=== PATIENT | female | born 1975 | race American Indian/Alaskan Native ===

== ENCOUNTER 2017-07-13 17:10 | Emergency (ER) | payer OTHER ==
[2017-07-13] MEDS ORDERED: MOTRIN PO ONE (19:22)
--- NOTE | 2017-07-13 19:23 | Emergency Department Report ---
Blank Doc - Documentation Documentation: Patient is a 42-year-old female who is presenting with right ankle pain this started to radiate up the right calf. Patient states that she has a history of some dependent edema however the edema has not been in bed she does have point discomfort. Patient states last week she did have some increased edema but she's been elevating the leg pain is not improved. D-dimer will be ordered to rule out potential for clotting disorder.
--- NOTE | 2017-07-13 20:18 | Emergency Department Report ---
ED Lower Extremity HPI - General Chief Complaint: Extremity Injury, Lower Stated Complaint: BILATERAL LEGS/FEET SWELLING Time Seen by Provider: 07/13/17 19:05 Source: patient, family Mode of arrival: Ambulatory Limitations: No Limitations - History of Present Illness Initial Comments: Patient airport right ankle pain. 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 She is having pain to her right ankle 8 out of 10 and aching. Patient also has a history of swelling to both legs and reporting pain is radiating up in her right leg and she has swelling to both her legs. Patient has a history of atrial fibrillation in the past and also that she had a history of heart attack. She said she has a history of uterine ablation for dysfunctional uterine bleeding. Patient has a history of GERD. She also reports that she was on Lasix in the past as noted on the chart that on 08/11/2015 she was placed on Lasix for edema in her legs. Patient says she's been out of her metoprolol which she takes twice a day after she had atrial fibrillation and heart attack. Her blood pressure is stable at present. She denies any chest pain, shortness of breath. Denies any control. Denies any recent long distance travel by plane or car to exceed 3 or more hours. Denies any history of cancer or recent convalescent. She reports that pain is radiating up in her right calf and it feels sore but aching into her right ankle. [id number] medication does not help pain. Pain is worse with weightbearing and better with resting. Denies any fever or chills. Denies any injuries to her extremities. Denies any redness to legs. Patient has a history of chronic edema to both her lower extremity to include her ankles and feet. MD Complaint: other Onset/Timin -: week(s) Injury: Ankle: Right (Pain and sweswelling rt ankle) Type of Injury: unknown Place: home Severity: severe Severity scale (0 -10): 7 Improves With: immobilization, rest Worsens With: weight bearing, movement, palpation Context: other (unknown) Associated Symptoms: swelling, ambulatory. denies: snap/pop sensation, numbness , tingling, unable to bear weight, able to partially bear weight - Related Data Previous Rx's Medication Instructions Recorded Last Taken Type ALBUTEROL Inhaler [Proair] 2 puff IH QID PRN #1 inhalation 08/11/15 Unknown Rx Furosemide [Lasix] 20 mg PO QDAY #10 tablet 08/11/15 Unknown Rx Ibuprofen [Motrin] 800 mg PO Q8HR PRN #12 tablet 07/13/17 Unknown Rx Metoprolol [Lopressor TAB] 50 mg PO Q12H 30 Days #60 tablet 07/13/17 Unknown Rx Allergies Allergy/AdvReac Type Severity Reaction Status Date / Time No Known Allergies Allergy Verified 05/24/14 22:03 ED Review of Systems ROS: Stated complaint: BILATERAL LEGS/FEET SWELLING Other details as noted in HPI Comment: All other systems reviewed and negative Constitutional: no symptoms reported Respiratory: no symptoms reported Cardiovascular: denies: chest pain, palpitations, dyspnea on exertion, edema, syncope, paroxysmal nocturnal dyspnea Gastrointestinal: denies: abdominal pain, nausea, vomiting Genitourinary: denies: urgency, dysuria, frequency, hematuria, discharge, abnormal menses, dyspareunia Musculoskeletal: joint swelling, arthralgia. denies: back pain, myalgia Neurological: denies: headache, weakness, numbness, paresthesias, confusion, abnormal gait, vertigo ED Past Medical Hx - Past Medical History Previous Medical History?: Yes Hx Hypertension: Yes Hx GERD: Yes Hx Renal Disease: No Hx Asthma: No Additional medical history: A. Fib. - Surgical History Past Surgical History?: Yes Additional Surgical History: Uterine ablation for DUB March 2014 - Family History Family history: hypertension - Social History Smoking Status: Never Smoker Substance Use Type: Alcohol - Medications Home Medications: Home Medications Medication Instructions Recorded Confirmed Last Taken Type ALBUTEROL Inhaler [Proair] 2 puff IH QID PRN #1 inhalation 08/11/15 Unknown Rx Furosemide [Lasix] 20 mg PO QDAY #10 tablet 08/11/15 Unknown Rx Ibuprofen [Motrin] 800 mg PO Q8HR PRN #12 tablet 07/13/17 Unknown Rx Metoprolol [Lopressor TAB] 50 mg PO Q12H 30 Days #60 tablet 07/13/17 Unknown Rx ED Physical Exam - General Limitations: No Limitations General appearance: alert, in no apparent distress - Head Head exam: Present: atraumatic, normocephalic, normal inspection - Eye Eye exam: Present: normal appearance, PERRL, EOMI. Absent: nystagmus, periorbital swelling, periorbital tenderness Pupils: Present: normal accommodation - ENT ENT exam: Present: normal exam, normal orophraynx, mucous membranes moist. Absent: TM's normal bilaterally, normal external ear exam - Neck Neck exam: Present: normal inspection, full ROM. Absent: tenderness, meningismus, lymphadenopathy, thyromegaly - Respiratory Respiratory exam: Present: normal lung sounds bilaterally. Absent: respiratory distress, wheezes, chest wall tenderness, accessory muscle use - Cardiovascular Cardiovascular Exam: Present: regular rate, normal rhythm, normal heart sounds. Absent: systolic murmur, diastolic murmur - GI/Abdominal GI/Abdominal exam: Present: soft, normal bowel sounds. Absent: distended, rebound, rigid, mass, bruit, pulsatile mass, hernia - Extremities Exam Extremities exam: Present: full ROM, tenderness (right inner ankle), pedal edema (right foot minimal), joint swelling (right ankle), other (ambulates with mild limp. The right side). Absent: normal inspection, normal capillary refill , calf tenderness - Expanded Lower Extremity Exam Right Hip exam: Present: normal inspection, full ROM, pelvic stability. Absent: tenderness, swelling, abrasion, laceration, ecchymosis, deformity, crepidus, dislocation, erythema, external rotation, internal rotation, shortening Upper Leg exam: Present: normal inspection, full ROM. Absent: tenderness, swelling, abrasion, laceration, ecchymosis, deformity, crepidus, dislocation, erythema Knee exam: Present: normal inspection, full ROM, full knee extension. Absent: tenderness, swelling, abrasion, laceration, ecchymosis, deformity, crepidus, dislocation, erythema, effusion, pain w/ pronation/supination, posterior draw sign, pain/laxity with valgus, pain/laxity with varus Lower Leg exam: Present: normal inspection, full ROM, Hina's sign. Absent: tenderness, swelling, abrasion, laceration, ecchymosis, deformity, crepidus, dislocation, erythema, palpable cord Ankle exam: Present: full ROM, tenderness (right ankle), swelling (mild swelling to right ankle). Absent: normal inspection, abrasion, laceration, ecchymosis, deformity, crepidus, dislocation, erythema Foot/Toe exam: Present: normal inspection, full ROM, swelling (trace swelling to right foot). Absent: tenderness, abrasion, laceration, ecchymosis, deformity , crepidus, dislocation, erythema, amputation, puncture wound, foreign body, calcaneal tenderness, tenderness at base of 5th metatarsal, nail avulsion, subungual hematoma Neuro vascular tendon exam: Present: no vascular compromise. Absent: pulse deficit, abnormal cap refill, motor deficit, sensory deficit, tendon deficit, extremity cold to touch, pallor, abnormal 2-point discrimination, decreased fine /light touch, foot drop, peroneal nerve deficit, significant pain with passive ROM of distal joint Gait: Positive: observed and limited by pain - Back Exam Back exam: Present: normal inspection, full ROM, other (ambulates without any difficulties). Absent: tenderness, CVA tenderness (R), CVA tenderness (L), muscle spasm, paraspinal tenderness, vertebral tenderness, rash noted - Neurological Exam Neurological exam: Present: alert, oriented X3, abnormal gait (patient with minimal limp into right lower extremity), reflexes normal, other (no focal deficit). Absent: motor sensory deficit - Psychiatric Psychiatric exam: Present: normal affect, normal mood - Skin Skin exam: Present: warm, dry, intact, normal color. Absent: rash ED Course Vital Signs 07/13/17 07/13/17 07/13/17 17:21 22:30 22:50 Temperature 98.3 F 98.3 F Pulse Rate 88 85 85 Respiratory 18 18 Rate Blood Pressure 134/85 154/87 Blood Pressure 154/87 [Right] O2 Sat by Pulse 95 99 Oximetry - Reevaluation(s) Reevaluation #1: 07/13/17 21:13 This given Motrin 800 mg emergency room for right ankle pain. She voiced some relief of pain. Awaiting an x-ray of ankle 1 Reevaluation #2: 07/13/17 22:02 Patient to receive Lovenox 120 mg subcutaneously based on weight. She will be discharged home to follow up outpatient vascular lab for right lower extremity vascular study. Reevaluation #3: 07/13/17 22:24 Patient is stable, metoprolol and Lovenox to be given. Crutches and Alexei wrap to stabilize right ankle pain and swelling and please refer to procedure note for detail. Ultrasound, outpatient Doppler right lower extremity for tomorrow and patient is aware - Orthopedic Splinting/Casting Injury #1 Side: right Upper Extremity Immobilizer: Alexei wrap Lower Extremity Injury Location: ankle, foot Other Orthopedic Equipment: crutches Additional Comments: Neurovascular exam normal ED Lower Extremity MDM - Lab Data Lab Results 07/13/17 Range/Units 19:38 D-Dimer 249.32 H (0-234) ng/mlDDU - Radiology Data Radiology results: report reviewed X-ray of right ankle reveals no soft tissue swelling seen and no fracture or malalignment. - Medical Decision Making ED course: Patient reports that she has chronic lower extremity edema to include her legs, ankle and feet. She said that she was seen at [facility] for swelling to her extremities and last week she started having swelling to her right ankle with pain. 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 She denies twisting, blunt trauma or falling. Patient is not on control and she does not have any tenderness to palpate to the right calf but she said she has had a history of pulmonary embolism after having surgery in 2003 and she was on blood thinner which she has not taken now. Patient reports that she has chronic swelling to her legs, ankles and feet though only difference is that she is having pain to her right ankle with swelling. Denies any chest pain or shortness of breath. Pain is localized to right ankle. Physical findings for no swelling to her legs and trace swelling to right foot. She is dependent at the palpate to the right ankle. Patient was given Motrin 800 mg PO for pain and Lovenox 120 mg SQ prophylaxis for DVT in emergency room . Alexei wrap and crutches. See procedure notes for details. Her d-dimer is elevated please refer to labs for detail. X- ray had no acute findings and please refer to radiology section for details. I discussed the patient her lab results and x-ray results and told her that she' ll have to have Doppler ultrasound study of her lower extremity to rule out any clots. Patient has a history of heart attack and atrial fibrillation which she said that she is on metoprolol and she's been out of her metoprolol for about a week and she does not have primary care physician and has not seen a suction worker. She is that she has not seen a suction worker in years and she does not have any insurance that she doesn't primary care. I discussed with her that I will refer her to [facility] family medicine and she can schedule appointment tomorrow for physical exam and this is based on the sliding scale fee. I also discussed with her that is very imperative that she return to the vascular lab tomorrow morning to have ultrasound done to rule out a blood clot in her leg. Patient does not have any signs of blood clots to legs except she has left ankle swelling and pain at her left ankle. Her calves are normal and she is without any tenderness to her calves. She does not have any erythema or swelling to both her legs. discharged home in stable condition with prescription for Metoprolol and ibuprofen. Critical care attestation.: If time is entered above; I have spent that time in minutes in the direct care of this critically ill patient, excluding procedure time. ED Disposition Clinical Impression: Pain in right ankle and joints of right foot, Swelling of right ankle joint, D- dimer, elevated Disposition: DC-01 TO HOME OR SELFCARE Is pt being admited?: No Does the pt Need Aspirin: No Condition: Stable Instructions: Musculoskeletal Pain (ED), Arthralgia (ED) Additional Instructions: A component a lab work are 2S d-dimer was elevated today. He will need to return to the skin lab as directed on appointment sheet to have ultrasound of your lower extremity to rule out any blood clots. Your given little dots which is a blood thinner to protect you and keeping her blood thin and prevent clotting. It is very imperative that you return tomorrow to get this Doppler ultrasound study done. If the vascular lab at [facility] does not call you by 9 AM he will need to call them and let them know that you're seen in the emergency room and ultrasound of your right lower extremity was ordered. They will have appointment. If he develops any chest pain or shortness of breath please return to the emergency room KYLE. No weightbearing to right lower extremity. If you're ultrasound comes back positive for blood clot, staff in vascular lab well direct you back to the emergency room. Prescriptions: Ibuprofen [Motrin] 800 mg PO Q8HR PRN #12 tablet PRN Reason: Pain , Severe (7-10) Metoprolol [Lopressor TAB] 50 mg PO Q12H 30 Days #60 tablet Referrals: [facility] [Outside] - 07/15/17 (These call [facility] for management of chronic medical problem and they will refer you accordingly. You need to have a Pap smear and also mammogram at the age of 42 which she has told me you haven't had in 3 years) [facility], vascular lab [Other] - 3-5 Days (Please proceed to the vascular lab at [facility] on 07/14/2017 for appointment for Doppler ultrasound of right lower extremity to rule out any blood clot. If you do not get a call from them by 9 AM please call them and let them know that you're scheduled to be seen to have ultrasound to your right lower leg per emergency room.)
[2017-07-13] MEDS ORDERED: LOVENOX SUB-Q ONE (22:01)
[2017-07-13] MEDS ORDERED: LOPRESSOR PO ONE (22:09)
--- NOTE | 2017-07-13 22:26 | XRay Report ---
FINAL REPORT PROCEDURE: XR ANKLE 3+V RT TECHNIQUE: Right ankle radiographs, AP, lateral, and oblique views. CPT 91700 HISTORY: rt ankle pain and swelling COMPARISON: No prior studies are available for comparison. FINDINGS: Fracture (s) and/or Dislocation(s): None . Alignment: Normal . Joint space(s): Normal . Soft tissues: Normal . Bone mineralization: Normal . Foreign bodies: None . Calcaneal spurring: There are calcaneal spurs.. IMPRESSION: There are no fractures or malalignments. Soft tissues are unremarkable..
[2017-07-14 07:23] VITALS: BP 154/87
== END 2017-07-13 22:50 | disposition home or self-care (01) ==
LOC: ED 17:10
DX: M25.571 Pain in right ankle and joints of right foot (principal); I10 Essential (primary) hypertension; K21.9 Gastro-esophageal reflux disease without esophagitis; I48.91 Unspecified atrial fibrillation
CPT/HCPCS: 36415; 73610; 85379; 96372; 99283; J1650

== ENCOUNTER 2017-07-14 09:35 | Outpatient (CLI) | payer OTHER | END 2017-07-14 09:36 | disposition home or self-care (01) | LOC: VAS 09:35 | PROVIDERS: ATTEND Nurse Practitioner Family | DX: M25.571 Pain in right ankle and joints of right foot (principal); M25.471 Effusion, right ankle ==

== ENCOUNTER 2017-08-02 10:51 | Emergency (ER) | payer OTHER ==
[2017-08-02 10:58] VITALS: BP 154/97
--- NOTE | 2017-08-02 12:33 | Emergency Department Report ---
Minor Respiratory - HPI Chief Complaint: Sore Throat Stated Complaint: FEVER, SORE THROAT Time Seen by Provider: 08/02/17 11:44 Duration: 4 Days (sore throats and pain to right ear.) Pain Location: Throat, Ear Severity: severe (10/10. Sore worse with swallowing. [id number] pain medication without any relief) Minor Respiratory: Yes Sore Throat, Yes Able to Tolerate Fluids, Yes Ear Pain ( right ear), Yes Fever, No Rhinorrhea, No Cough, No Sick Contacts, No Hemoptysis , No Chest Pain, No Shortness of Breath Other History: Patient reports that she is sore throat fever and sore neck 4 days. She's been taking [id number] medication without any relief. Denies any nausea or vomiting. She also reports that she has headache on and off for the past 4 days. Denies any abdominal pain. Denies any back pain. Denies any cough, congestion, shortness of breath or chest pain. Pain feels achy , no alleviating factor, worse with swallowing. Denies any drooling. ED Review of Systems ROS: Stated complaint: FEVER, SORE THROAT Other details as noted in HPI Comment: All other systems reviewed and negative Constitutional: no symptoms reported Eyes: denies: eye pain, eye discharge ENT: ear pain, throat pain. denies: dental pain, hearing loss, congestion Respiratory: no symptoms reported Cardiovascular: denies: chest pain, palpitations, dyspnea on exertion, edema, syncope, paroxysmal nocturnal dyspnea Gastrointestinal: denies: abdominal pain, nausea, vomiting, diarrhea, constipation, hematemesis, melena, hematochezia Genitourinary: denies: urgency, dysuria, frequency, hematuria, discharge, abnormal menses Musculoskeletal: denies: back pain, joint swelling, arthralgia, myalgia Skin: denies: rash Neurological: headache. denies: weakness, numbness, paresthesias, confusion, abnormal gait, vertigo ED Past Medical Hx - Past Medical History Previous Medical History?: Yes Hx Hypertension: Yes Hx GERD: Yes Hx Renal Disease: No Hx Asthma: No Additional medical history: A. Fib. - Surgical History Past Surgical History?: Yes Additional Surgical History: Uterine ablation for DUB March 2014 - Family History Family history: hypertension - Social History Smoking Status: Never Smoker Substance Use Type: Alcohol, Other - Medications Home Medications: Home Medications Medication Instructions Recorded Confirmed Last Taken Type ALBUTEROL Inhaler [Proair] 2 puff IH QID PRN #1 inhalation 08/11/15 Unknown Rx Furosemide [Lasix] 20 mg PO QDAY #10 tablet 08/11/15 Unknown Rx Metoprolol [Lopressor TAB] 50 mg PO Q12H 30 Days #60 tablet 07/13/17 Unknown Rx Ibuprofen [Motrin 800 MG tab] 800 mg PO Q8HR PRN #12 tablet 08/02/17 Unknown Rx Penicillin V Potassium 500 mg PO Q8H 10 Days #30 tablet 08/02/17 Unknown Rx Minor Respiratory Exam - Exam General: Vital signs noted. No distress. Alert and acting appropriately. This is a 42-year-old female well-nourished well-developed in no acute distress. HEENT: Yes Pharyngeal Erythema, Yes Pharyngeal Exudates, Yes Moist Mucous Membranes (uvula is midline and oral airways patent.), No Rhinorrhea, No Conjuctival Injection, No Frontal Tenderness, No Maxillary Tenderness Ear: Neither TM Bulge, Neither TM Erythema, Neither EAC Pain, Neither EAC Discharge Neck: Yes Adenopathy (bilateral anterior chain), Yes Supple (full range of motion) Lungs: Yes Good Air Exchange, No Wheezes, No Ronchi, No Stridor, No Cough, No Labored Respirations, No Retractions, No Use of Accessory Muscles, No Other Abnormal Lung Sounds Heart: Yes Regular (S1, S2), No Murmur Abdomen: Yes Normal Bowel Sounds (in all quadrants.), No Tenderness (nontender the palpation in all quadrants and no CVA tenderness), No Peritoneal Signs Skin: No Rash, No Edema Neurologic: Alert and oriented, no deficits. Neurological: Patient is alert and oriented 3, GCS of 15. Speech is clear. Normal gait, no motor or sensory deficit. Normal reflexes. Musculoskeletal: Unremarkable. Normal exam ED Course Vital Signs 08/02/17 10:55 Temperature 98.8 F Pulse Rate 93 H Respiratory 20 Rate Blood Pressure 154/97 O2 Sat by Pulse 96 Oximetry - Reevaluation(s) Reevaluation #1: 08/02/17 12:56 Patient received Motrin 800 mg by mouth and Deltasone 60 mg by mouth. ED Medical Decision Making - Medical Decision Making ED course: Patient presented with sore throat, fever and headache with neck pain on and off for the past 4 days. Physical findings for enlarged anterior cervical chain lymph nodes, exudative pharyngitis, patient has no respiratory symptoms and she is having headache with fever. Based on [facility] criteria, patient with exudative pharyngitis and no need for strep testing. I discussed patient diagnosis and treatment plan and she is in agreement. She received both of those this milligrams by mouth, Motrin 800 mg in the emergency room for relief of pain. Patient discharged home prescription for Motrin and penicillin V and to follow up with her primary care in 2-3 days. Critical care attestation.: If time is entered above; I have spent that time in minutes in the direct care of this critically ill patient, excluding procedure time. ED Disposition Clinical Impression: Exudative pharyngitis, Anterior cervical adenopathy Acute headache Qualifiers: Headache type: unspecified Intractability: not intractable Qualified Code(s): R51 - Headache Disposition: DC-01 TO HOME OR SELFCARE Is pt being admited?: No Does the pt Need Aspirin: No Condition: Stable Instructions: Strep Throat (ED) Additional Instructions: Please increase her fluid intake Return to work in 48 hours Practice good hand hygiene Take antibiotic and Motrin as prescribed. Motrin is for fever and pain Prescriptions: Ibuprofen [Motrin 800 MG tab] 800 mg PO Q8HR PRN #12 tablet PRN Reason: fever and/or pain Penicillin V Potassium 500 mg PO Q8H 10 Days #30 tablet Referrals: [facility] [Outside] - 2-3 Days your, primary care physician [Other] - 3-5 Days Forms: Work/School Release Form(ED)
[2017-08-02] MEDS ORDERED: DELTASONE PO ONE (12:34)
[2017-08-02] MEDS ORDERED: MOTRIN PO ONE (12:34)
== END 2017-08-02 13:10 | disposition home or self-care (01) ==
LOC: ED 10:51
DX: J02.9 Acute pharyngitis, unspecified (principal); R59.9 Enlarged lymph nodes, unspecified; R51 Headache; I10 Essential (primary) hypertension; K21.9 Gastro-esophageal reflux disease without esophagitis
CPT/HCPCS: 99282; J7512

== ENCOUNTER 2019-03-18 16:51 | Emergency (ER) | payer MEDICAID ==
--- NOTE | 2019-03-18 17:12 | Event Note ---
ED Screening Note Date of service: 03/18/19 Time: 17:07 ED Screening Note: Reports dizziness, jittery, SOB, Heart palpatation a few hours ago but feels better now. Taking metoprolol, Lasix, Nifedipine,Chlorthalddane. 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 Takes Potassium. Denies swelling to extremities Placed on Holter monitor for 2 weeks 2 weeks ago and nothing was found. Had ECHO 4 months ago. No h/o stress test VSS Tachycardia This initial assessment/diagnostic orders/clinical plan/treatment(s) is/are subject to change based on patients health status, clinical progression and re- assessment by fellow clinical providers in the ED. Further treatment and workup at subsequent clinical providers discretion. Patient/guardian urged not to elope from the ED as their condition may be serious if not clinically assessed and managed. Initial orders include: CP protocol
[2019-03-18 18:12] LABS: Basophils % (Auto) 0.1 % (0.0-1.8); Eosinophils # (Auto) 0.1 K/mm3 (0.0-0.4); Eosinophils % (Auto) 0.9 % (0.0-4.3); Hemoglobin 13.1 gm/dl (10.1-14.3); Lymphocytes # (Auto) 2.1 K/mm3 (1.2-5.4); Lymphocytes % (Auto) 23.8 % (13.4-35.0); Mean Corpuscular HGB Conc 34 % (30-34); Mean Corpuscular Volume 92 fl (79-97); Monocytes % (Auto) 11.2 % (0.0-7.3); Platelet Count 247 K/mm3 (140-440); Red Blood Count 4.25 M/mm3 (3.65-5.03); Red Cell Distribution Width 13.3 % (13.2-15.2)
[2019-03-18 18:22] LABS: INR 1.01 (0.87-1.13)
[2019-03-18 18:27] LABS: Alanine Aminotransferase 18 units/L (7-56); BUN/Creatinine Ratio 18; Blood Urea Nitrogen 18 mg/dL (7-17); Calcium 9.5 mg/dL (8.4-10.2); Hemolysis Index 23
--- NOTE | 2019-03-18 18:43 | Emergency Department Report ---
ED General Adult HPI - General Chief complaint: Dizziness Stated complaint: DIZZINESS,SHORTNESS OF BREATH,CHEST PALP Time Seen by Provider: 03/18/19 18:25 Source: patient Mode of arrival: Ambulatory Limitations: No Limitations, Altered Mental Status - History of Present Illness Initial comments: Patient is a 43-year-old female that presents emergency room with complaints of shortness of breath and dizziness that going on for 2 weeks. Patient states his symptoms are intermittent. Patient states the symptoms are not worsening but of the same. Patient states her symptoms completely come and go. Patient states her shortness of breath is worse with exertion and better with rest. Patient states her dizziness is worse with exertion and better with rest. Patient states her dizziness is more lightheadedness. Patient denies a sensation of movement. Patient states she has palpitations at times. Patient denies chest pain. Patient denies fever. Patient denies chills. Patient denies near syncope. Patient denies syncope. Patient states she has not seen her biology adjunct instructor or her primary care further symptoms. She states she's not having any symptoms at this time but just wanted to be checked out since the symptoms have been going on for 2 weeks. -: Sudden Severity scale (0 -10): 0 Consistency: intermittent, now resolved Improves with: rest Worsens with: other Associated Symptoms: shortness of breath. denies: confusion, chest pain, cough, diaphoresis, fever/chills, headaches, loss of appetite, malaise, nausea/vomiting, rash, seizure, syncope, weakness Treatments Prior to Arrival: none - Related Data Previous Rx's Medication Instructions Recorded Last Taken Type ALBUTEROL Inhaler (OR & NICU) 2 puff IH QID PRN #1 inhalation 08/11/15 Unknown Rx [Proair] Furosemide [Lasix] 20 mg PO QDAY #10 tablet 08/11/15 Unknown Rx Metoprolol [Lopressor TAB] 50 mg PO Q12H 30 Days #60 tablet 07/13/17 Unknown Rx Ibuprofen [Motrin 800 MG tab] 800 mg PO Q8HR PRN #12 tablet 08/02/17 Unknown Rx Penicillin V Potassium 500 mg PO Q8H 10 Days #30 tablet 08/02/17 Unknown Rx Allergies Allergy/AdvReac Type Severity Reaction Status Date / Time No Known Allergies Allergy Verified 05/24/14 22:03 ED Review of Systems ROS: Stated complaint: DIZZINESS,SHORTNESS OF BREATH,CHEST PALP Other details as noted in HPI Comment: All other systems reviewed and negative Constitutional: denies: chills, fever Eyes: denies: eye pain, eye discharge, vision change ENT: denies: ear pain, throat pain Respiratory: shortness of breath. denies: cough, wheezing Cardiovascular: palpitations. denies: chest pain Endocrine: no symptoms reported Gastrointestinal: denies: abdominal pain, nausea, diarrhea Genitourinary: denies: urgency, dysuria, discharge Musculoskeletal: denies: back pain, joint swelling, arthralgia Skin: denies: rash, lesions Neurological: denies: headache, weakness, paresthesias Psychiatric: denies: anxiety, depression Hematological/Lymphatic: denies: easy bleeding, easy bruising ED Past Medical Hx - Past Medical History Previous Medical History?: Yes Hx Hypertension: Yes Hx GERD: Yes Hx Renal Disease: No Hx Asthma: No Additional medical history: A. Fib. - Surgical History Past Surgical History?: Yes Additional Surgical History: Uterine ablation for DUB March 2014 - Social History Smoking Status: Never Smoker Substance Use Type: Prescribed - Medications Home Medications: Home Medications Medication Instructions Recorded Confirmed Last Taken Type ALBUTEROL Inhaler (OR & NICU) 2 puff IH QID PRN #1 inhalation 08/11/15 Unknown Rx [Proair] Furosemide [Lasix] 20 mg PO QDAY #10 tablet 08/11/15 Unknown Rx Metoprolol [Lopressor TAB] 50 mg PO Q12H 30 Days #60 tablet 07/13/17 Unknown Rx Ibuprofen [Motrin 800 MG tab] 800 mg PO Q8HR PRN #12 tablet 08/02/17 Unknown Rx Penicillin V Potassium 500 mg PO Q8H 10 Days #30 tablet 08/02/17 Unknown Rx ED Physical Exam - General Limitations: No Limitations General appearance: alert, in no apparent distress - Head Head exam: Present: atraumatic, normocephalic - Eye Eye exam: Present: normal appearance, PERRL Pupils: Present: normal accommodation - ENT ENT exam: Present: mucous membranes moist - Neck Neck exam: Present: normal inspection, full ROM. Absent: tenderness, meningismus, lymphadenopathy, thyromegaly - Respiratory Respiratory exam: Present: normal lung sounds bilaterally. Absent: respiratory distress, wheezes, rales - Cardiovascular Cardiovascular Exam: Present: regular rate, normal rhythm. Absent: systolic murmur, diastolic murmur, rubs, gallop - GI/Abdominal GI/Abdominal exam: Present: soft, normal bowel sounds. Absent: distended, tenderness, guarding - Rectal Rectal exam: Present: deferred - Extremities Exam Extremities exam: Present: normal inspection, full ROM, normal capillary refill. Absent: tenderness, pedal edema, calf tenderness - Back Exam Back exam: Present: normal inspection, full ROM - Neurological Exam Neurological exam: Present: alert, oriented X3 - Psychiatric Psychiatric exam: Present: normal affect, normal mood - Skin Skin exam: Present: warm, dry, intact, normal color. Absent: rash ED Course Vital Signs 03/18/19 03/18/19 03/18/19 16:58 17:42 17:54 Temperature 98 F Pulse Rate 110 H 85 Respiratory 22 16 14 Rate Blood Pressure 151/86 Blood Pressure 124/78 [Left] O2 Sat by Pulse 97 100 100 Oximetry 03/18/19 19:21 Temperature Pulse Rate 82 Respiratory 20 Rate Blood Pressure Blood Pressure 128/94 [Left] O2 Sat by Pulse 97 Oximetry - Reevaluation(s) Reevaluation #1: Patient states she is not having any symptoms at this time. Patient states she is able to ambulate to the bathroom and back without difficulties. Patient tolerated water intake. I discussed all results with patient. I discussed plan of care with patient. Patient is stable for discharge. Patient will be discharged home. Patient given discharge instructions. Patient voiced understanding of discharge instructions. 03/18/19 19:35 03/18/19 19:37 - Consultations Consultation #1: I discussed case with the physician on-call for [facility]. Dr. Corey states she's going to set the patient up with an appointment on Wednesday. 03/18/19 20:01 ED Medical Decision Making - Lab Data Result diagrams: 03/18/19 17:42 03/18/19 17:42 - EKG Data -: EKG Interpreted by Me EKG shows normal: sinus rhythm, axis, intervals, QRS complexes, ST-T waves Rate: tachycardia - Radiology Data Radiology results: report reviewed, image reviewed interpreted by me: No acute findings on chest x-ray. - Medical Decision Making Patient is a 43-year-old female that presents emergency room for shortness of breath and dizziness. Patient's symptoms going on for 2 weeks. Patient's symptoms are intermittent. Patient denies having symptoms while in the ER. Patient from a emergency medical standpoint is stable for discharge. Patient discharged home. Patient instructed to follow-up with her biology adjunct instructor within 2-3 days. Patient's labs unremarkable. Patient's EKG shows a sinus tach. On absence management consultant patient shows a sinus rhythm of a rate of 80-84. Patient's blood pressure better. Vital signs reviewed. Chest x-ray reviewed and negative. - Differential Diagnosis shortness of breath. Dizziness. Dehydration. Critical care attestation.: If time is entered above; I have spent that time in minutes in the direct care of this critically ill patient, excluding procedure time. ED Disposition Clinical Impression: SOB (shortness of breath), Dizziness, Dehydration Hypertension Qualifiers: Hypertension type: essential hypertension Qualified Code(s): I10 - Essential (primary) hypertension Disposition: TO HOME OR SELFCARE Is pt being admited?: No Does the pt Need Aspirin: No Condition: Stable Instructions: Heart Healthy Diet (ED), How to Take a Blood Pressure (ED), DASH Eating Plan (ED), Low Sodium Diet (ED), Hypertension (ED), Lightheadedness (ED), Dizziness (ED) Additional Instructions: Patient to follow-up with primary care in 2-3 days. Patient to follow-up with biology adjunct instructor within 2 days. Patient has an appointment set up for Wednesday with Dr. Norman. Patient to return to ER if condition worsens. Patient increase water. Patient to rest. Patient to avoid strenuous exercise until she is seen by her primary care and biology adjunct instructor. Patient to meds. Patient to eat heart healthy and low-salt diet. Referrals: TYRA CARLTON MD [Primary Care Provider] - 2-3 Days POLO NORMAN MD [Staff Physician] - 2-3 Days Time of Disposition: 19:59
[2019-03-18 19:22] VITALS: BP 128/94
--- NOTE | 2019-03-18 19:28 | XRay Report ---
CHEST 2 VIEWS INDICATION: Lightheadedness/Dizziness. COMPARISON: Chest x-ray from 08/10/2015 FINDINGS: Support devices: None. Heart: Within normal limits. Lungs/pleura: No acute air space or interstitial disease. No pneumothorax. Additional findings: None. IMPRESSION: 1. No acute findings. Signer Name: Mariano Sutton MD Signed: 03/18/2019 7:24 PM Workstation Name: [id number]
== END 2019-03-18 20:29 | disposition home or self-care (01) ==
LOC: ED 16:51
DX: R06.02 Shortness of breath (principal); R42 Dizziness and giddiness; E86.0 Dehydration; I10 Essential (primary) hypertension; K21.9 Gastro-esophageal reflux disease without esophagitis; I48.91 Unspecified atrial fibrillation; Z79.899 Other long term (current) drug therapy
CPT/HCPCS: 36415; 71046; 80053; 84484; 84703; 85025; 85610; 93005; 93010

== ENCOUNTER 2019-06-20 09:17 | Emergency (ER) | payer MEDICAID ==
[2019-06-20 09:25] VITALS: BP 150/86
[2019-06-20] MEDS ORDERED: HYDROcodone/ACETAMINOPHEN 5-325 MG TAB PO ONE (12:28)
[2019-06-20] MEDS ORDERED: ONDANSETRON 4 MG ODT TAB PO ONE (12:28)
--- NOTE | 2019-06-20 12:32 | Emergency Department Report ---
ED General Adult HPI - General Chief complaint: Extremity Injury, Lower Stated complaint: RT KNEE INJURY Time Seen by Provider: 06/20/19 11:11 Source: patient Mode of arrival: Ambulatory Limitations: No Limitations - History of Present Illness Initial comments: The patient presents to the emergency department with a chief complaint of right knee pain. Patient states she fell at a gas station striking her right knee against the ground. Sensation states since that time she's had right knee pain with some swelling. Patient states the Tylenol and Motrin at home are not working for relief of pain. She states she has a history of multiple knee injuries to the right knee. Patient denies hitting her head or any loss consciousness. -: Sudden Location: lower extremity Radiation: non-radiation Severity scale (0 -10): 6 Quality: sharp Consistency: constant Improves with: rest Worsens with: movement Associated Symptoms: denies other symptoms Treatments Prior to Arrival: none - Related Data Previous Rx's Medication Instructions Recorded Last Taken Type Albuterol INH(or & Nicu Only) 2 puff IH QID PRN #1 inhalation 08/11/15 Unknown Rx [Proair] Furosemide [Lasix] 20 mg PO QDAY #10 tablet 08/11/15 Unknown Rx Metoprolol [Lopressor TAB] 50 mg PO Q12H 30 Days #60 tablet 07/13/17 Unknown Rx Ibuprofen [Motrin 800 MG tab] 800 mg PO Q8HR PRN #12 tablet 08/02/17 Unknown Rx Penicillin V Potassium 500 mg PO Q8H 10 Days #30 tablet 08/02/17 Unknown Rx Acetaminophen/Codeine [Tylenol 1 tab PO Q6H PRN #15 tab 06/20/19 Unknown Rx /Codeine # 3 tab] Ondansetron [Zofran Odt] 4 mg PO Q4HR PRN #20 tab.rapdis 06/20/19 Unknown Rx traMADoL [Ultram] 50 mg PO Q6HR PRN #20 tablet 06/20/19 Unknown Rx Allergies Allergy/AdvReac Type Severity Reaction Status Date / Time azithromycin [From Zithromax] Allergy Hives Verified 06/20/19 09:32 ED Review of Systems ROS: Stated complaint: RT KNEE INJURY Other details as noted in HPI Comment: All other systems reviewed and negative Constitutional: denies: chills, fever Eyes: denies: eye pain, eye discharge, vision change ENT: denies: ear pain, throat pain Respiratory: denies: cough, shortness of breath, wheezing Cardiovascular: denies: chest pain, palpitations Endocrine: no symptoms reported Gastrointestinal: denies: abdominal pain, nausea, diarrhea Genitourinary: denies: urgency, dysuria, discharge Musculoskeletal: denies: back pain, joint swelling, arthralgia Skin: denies: rash, lesions Neurological: denies: headache, weakness, paresthesias Psychiatric: denies: anxiety, depression Hematological/Lymphatic: denies: easy bleeding, easy bruising ED Past Medical Hx - Past Medical History Previous Medical History?: Yes Hx Hypertension: No Hx GERD: Yes Hx Renal Disease: No Hx Asthma: No Hx Tuberculosis: No Additional medical history: A. Fib.CHF. DEPENENT EDEMA - Surgical History Past Surgical History?: Yes Hx Coronary Stent: No Hx Open Heart Surgery: No Hx Pacemaker: No Hx Internal Defibrillator: No Hx Cholecystectomy: Yes Hx Appendectomy: No Hx Breast Surgery: No Additional Surgical History: Uterine ablation for DUB March 2014 - Social History Smoking Status: Never Smoker Substance Use Type: Prescribed - Medications Home Medications: Home Medications Medication Instructions Recorded Confirmed Last Taken Type Albuterol INH(or & Nicu Only) 2 puff IH QID PRN #1 inhalation 08/11/15 Unknown Rx [Proair] Furosemide [Lasix] 20 mg PO QDAY #10 tablet 08/11/15 Unknown Rx Metoprolol [Lopressor TAB] 50 mg PO Q12H 30 Days #60 tablet 07/13/17 Unknown Rx Ibuprofen [Motrin 800 MG tab] 800 mg PO Q8HR PRN #12 tablet 08/02/17 Unknown Rx Penicillin V Potassium 500 mg PO Q8H 10 Days #30 tablet 08/02/17 Unknown Rx Acetaminophen/Codeine [Tylenol 1 tab PO Q6H PRN #15 tab 06/20/19 Unknown Rx /Codeine # 3 tab] Ondansetron [Zofran Odt] 4 mg PO Q4HR PRN #20 tab.rapdis 06/20/19 Unknown Rx traMADoL [Ultram] 50 mg PO Q6HR PRN #20 tablet 06/20/19 Unknown Rx ED Physical Exam - General Limitations: No Limitations General appearance: alert, in no apparent distress - Head Head exam: Present: atraumatic, normocephalic - Eye Eye exam: Present: normal appearance - ENT ENT exam: Present: mucous membranes moist - Neck Neck exam: Present: normal inspection - Respiratory Respiratory exam: Present: normal lung sounds bilaterally. Absent: respiratory distress - Cardiovascular Cardiovascular Exam: Present: regular rate, normal rhythm. Absent: systolic murmur, diastolic murmur, rubs, gallop - GI/Abdominal GI/Abdominal exam: Present: soft, normal bowel sounds - Extremities Exam Extremities exam: Present: other (patient has tenderness palpation over the righ t patella with a small knee effusion; negative anterior and posterior drawer tests) - Back Exam Back exam: Present: normal inspection - Neurological Exam Neurological exam: Present: alert, oriented X3, CN II-XII intact. Absent: motor sensory deficit - Psychiatric Psychiatric exam: Present: normal affect, normal mood - Skin Skin exam: Present: warm, dry, intact, normal color. Absent: rash ED Course Vital Signs 06/20/19 09:22 Temperature 98.4 F Pulse Rate 90 Respiratory 16 Rate Blood Pressure 150/86 O2 Sat by Pulse 96 Oximetry ED Medical Decision Making - Medical Decision Making Discussed imaging with patient who politely declined Critical care attestation.: If time is entered above; I have spent that time in minutes in the direct care of this critically ill patient, excluding procedure time. ED Disposition Clinical Impression: Knee pain, right, Knee injury Disposition: - TO HOME OR SELFCARE Is pt being admited?: No Does the pt Need Aspirin: No Condition: Stable Instructions: Knee Pain (ED) Additional Instructions: return if worse Referrals: PRIMARY CARE,MD [Primary Care Provider] - 3-5 Days [facility] [Provider Group] - 3-5 Days [facility] [Provider Group] - 3-5 Days Time of Disposition: 12:31
== END 2019-06-20 12:48 | disposition home or self-care (01) ==
LOC: ED 09:17
DX: S89.91XA Unspecified injury of right lower leg, initial encounter (principal); K21.9 Gastro-esophageal reflux disease without esophagitis; Z90.49 Acquired absence of other specified parts of digestive tract; Z79.899 Other long term (current) drug therapy; Z88.1 Allergy status to other antibiotic agents; W01.198A Fall on same level from slipping, tripping and stumbling with subsequent striking against other object, initial encounter; Y93.89 Activity, other specified; Y92.89 Other specified places as the place of occurrence of the external cause; Y99.8 Other external cause status
CPT/HCPCS: Q0162

== ENCOUNTER 2019-07-27 16:47 | Emergency (ER) | payer MEDICAID ==
--- NOTE | 2019-07-27 17:36 | Emergency Department Report ---
Blank Doc - Documentation Documentation: 44-year-old female that presents with right knee knee. Had xray and was diagn osed with right knee fracture. Xrays present in triage today. This initial assessment/diagnostic orders/clinical plan/treatment(s) is/are subject to change based on patient's health status, clinical progression and re- assessment by fellow clinical providers in the ED. Further treatment and workup at subsequent clinical providers discretion. Patient/guardians urged not to elope from the ED as their condition may be serious if not clinically assessed and managed. Initial orders include: 1- Patient sent to [facility] for further evaluation and treatment 2- knee immobilizer vs. splint need
[2019-07-27 17:53] VITALS: BP 119/88
[2019-07-27] MEDS ORDERED: HYDROcodone/ACETAMINOPHEN 5-325 MG TAB PO ONE (21:18)
--- NOTE | 2019-07-27 21:18 | Emergency Department Report ---
ED Lower Extremity HPI - General Chief Complaint: Extremity Injury, Lower Stated Complaint: KNEE PAIN Time Seen by Provider: 07/27/19 17:32 Source: patient Mode of arrival: Ambulatory Limitations: Physical Limitation - History of Present Illness Initial Comments: Ms. Dumont is a 44-year-old female that presents with right knee knee. 3 weeks ago. Had xray and was diagnosed with right knee fracture. Xrays present in triage today. requesting referrral to orthopedics. Xray results noted for questionable for linear lucency in medial tibial condyle , pt is ambulatory in ed. requesting referral to Ortho. Will rx knee immobilizer and crutches, and ortho referral, pt is currently a/o x 3, ambulatory, with nad , liliana 3/10 knee pain for past 3 weeks. She denies new fall injury or trauma. MD Complaint: knee injury Onset/Timin -: week(s) Injury: Knee: Right Type of Injury: blunt Place: street/outdoors Severity: moderate Severity scale (0 -10): 5 Improves With: nothing Worsens With: weight bearing, palpation Context: fall Associated Symptoms: swelling, ambulatory - Related Data Previous Rx's Medication Instructions Recorded Last Taken Type Albuterol INH(or & Nicu Only) 2 puff IH QID PRN #1 inhalation 08/11/15 Unknown Rx [Proair] Furosemide [Lasix] 20 mg PO QDAY #10 tablet 08/11/15 Unknown Rx Metoprolol [Lopressor TAB] 50 mg PO Q12H 30 Days #60 tablet 07/13/17 Unknown Rx Ibuprofen [Motrin 800 MG tab] 800 mg PO Q8HR PRN #12 tablet 08/02/17 Unknown Rx Penicillin V Potassium 500 mg PO Q8H 10 Days #30 tablet 08/02/17 Unknown Rx Acetaminophen/Codeine [Tylenol 1 tab PO Q6H PRN #15 tab 06/20/19 Unknown Rx /Codeine # 3 tab] Ondansetron [Zofran Odt] 4 mg PO Q4HR PRN #20 tab.rapdis 06/20/19 Unknown Rx traMADoL [Ultram] 50 mg PO Q6HR PRN #20 tablet 06/20/19 Unknown Rx HYDROcodone/APAP 5-325 [[place] 1 each PO Q6HR PRN #12 tablet 07/27/19 Unknown Rx 5-325 mg TAB] Allergies Allergy/AdvReac Type Severity Reaction Status Date / Time azithromycin [From Zithromax] Allergy Hives Verified 07/27/19 16:50 ED Review of Systems ROS: Stated complaint: KNEE PAIN Other details as noted in HPI Constitutional: denies: chills, fever Eyes: denies: eye pain, eye discharge, vision change ENT: denies: ear pain, throat pain Respiratory: denies: cough, shortness of breath, wheezing Cardiovascular: denies: chest pain, palpitations Endocrine: no symptoms reported Gastrointestinal: as per HPI Genitourinary: as per HPI Musculoskeletal: other (right knee pain) Skin: denies: rash, lesions Neurological: denies: headache, weakness, paresthesias Psychiatric: denies: anxiety, depression Hematological/Lymphatic: denies: easy bleeding, easy bruising ED Past Medical Hx - Past Medical History Hx Hypertension: No Hx GERD: Yes Hx Renal Disease: No Hx Asthma: No Hx Tuberculosis: No Additional medical history: A. Fib.CHF. DEPENENT EDEMA - Surgical History Hx Coronary Stent: No Hx Open Heart Surgery: No Hx Pacemaker: No Hx Internal Defibrillator: No Hx Cholecystectomy: Yes Hx Appendectomy: No Hx Breast Surgery: No Additional Surgical History: Uterine ablation for DUB March 2014 - Social History Smoking Status: Never Smoker Substance Use Type: Alcohol - Medications Home Medications: Home Medications Medication Instructions Recorded Confirmed Last Taken Type Albuterol INH(or & Nicu Only) 2 puff IH QID PRN #1 inhalation 08/11/15 Unknown Rx [Proair] Furosemide [Lasix] 20 mg PO QDAY #10 tablet 08/11/15 Unknown Rx Metoprolol [Lopressor TAB] 50 mg PO Q12H 30 Days #60 tablet 07/13/17 Unknown Rx Ibuprofen [Motrin 800 MG tab] 800 mg PO Q8HR PRN #12 tablet 08/02/17 Unknown Rx Penicillin V Potassium 500 mg PO Q8H 10 Days #30 tablet 08/02/17 Unknown Rx Acetaminophen/Codeine [Tylenol 1 tab PO Q6H PRN #15 tab 06/20/19 Unknown Rx /Codeine # 3 tab] Ondansetron [Zofran Odt] 4 mg PO Q4HR PRN #20 tab.rapdis 06/20/19 Unknown Rx traMADoL [Ultram] 50 mg PO Q6HR PRN #20 tablet 06/20/19 Unknown Rx HYDROcodone/APAP 5-325 [[place] 1 each PO Q6HR PRN #12 tablet 07/27/19 Unknown Rx 5-325 mg TAB] ED Physical Exam - General Limitations: Physical Limitation General appearance: alert, in no apparent distress - Head Head exam: Present: atraumatic, normocephalic - Eye Eye exam: Present: normal appearance, PERRL, EOMI Pupils: Present: normal accommodation - ENT ENT exam: Present: mucous membranes moist - Neck Neck exam: Present: normal inspection - Respiratory Respiratory exam: Present: normal lung sounds bilaterally. Absent: respiratory distress - Cardiovascular Cardiovascular Exam: Present: regular rate, normal rhythm, normal heart sounds. Absent: systolic murmur, diastolic murmur, rubs, gallop - GI/Abdominal GI/Abdominal exam: Present: soft. Absent: distended - Rectal Rectal exam: Present: deferred - Extremities Exam Extremities exam: Present: full ROM, tenderness (right anterior knee ). Absent: joint swelling - Expanded Lower Extremity Exam Right Knee exam: Present: full ROM, tenderness, pain w/ pronation/supination, full knee extension. Absent: swelling, abrasion, laceration, ecchymosis, deformity, crepidus, dislocation, erythema, effusion, posterior draw sign Lower Leg exam: Absent: tenderness, swelling Neuro vascular tendon exam: Absent: motor deficit Gait: Positive: observed and limited by pain - Back Exam Back exam: Present: normal inspection, full ROM. Absent: tenderness, vertebral tenderness - Neurological Exam Neurological exam: Present: alert, oriented X3, CN II-XII intact, reflexes normal. Absent: motor sensory deficit - Expanded Neurological Exam Expanded Patient oriented to: Present: person, place, time Motor strength exam: RUE: 5, LUE: 5, RLE: 5, LLE: 5 Best Eye Response ([place]): (4) open spontaneously Best Motor Response ([place]): (6) obeys commands Best Verbal Response ([place]): (5) oriented [place] Total: 15 - Psychiatric Psychiatric exam: Present: normal affect, normal mood - Skin Skin exam: Present: warm, dry, intact, normal color. Absent: rash ED Course Vital Signs 07/27/19 17:32 Temperature 98.0 F Pulse Rate 80 Respiratory 20 Rate Blood Pressure 119/88 O2 Sat by Pulse 97 Oximetry ED Lower Extremity MDM - Medical Decision Making splint check complete pt demonstrated safe use of crutches, will be dc'd to home in stable condition at this time. will follow up with orthopedics in next 1-2 days. Critical care attestation.: If time is entered above; I have spent that time in minutes in the direct care of this critically ill patient, excluding procedure time. ED Disposition Clinical Impression: Internal derangement of knee Qualifiers: Laterality: right Qualified Code(s): M23.91 - Unspecified internal derangement of right knee Disposition: DC-01 TO HOME OR SELFCARE Is pt being admited?: No Does the pt Need Aspirin: No Condition: Stable Instructions: Leg Fracture (ED) Prescriptions: HYDROcodone/APAP 5-325 [[place] 5-325 mg TAB] 1 each PO Q6HR PRN #12 tablet PRN Reason: Pain Referrals: YANCI MATTHEWS MD [Staff Physician] - 3-5 Days Forms: Work/School Release Form(ED) Time of Disposition: 22:11
== END 2019-07-27 23:02 | disposition home or self-care (01) ==
LOC: ED 16:47
DX: M23.91 Unspecified internal derangement of right knee (principal); K21.9 Gastro-esophageal reflux disease without esophagitis; I48.91 Unspecified atrial fibrillation; I50.9 Heart failure, unspecified; Z98.890 Other specified postprocedural states; Z90.49 Acquired absence of other specified parts of digestive tract; Z79.899 Other long term (current) drug therapy; Z88.1 Allergy status to other antibiotic agents
CPT/HCPCS: 99282

== ENCOUNTER 2020-01-31 11:03 | Emergency (ER) | payer MEDICAID ==
[2020-01-31 11:11] VITALS: BP 168/87
== END 2020-01-31 17:14 | disposition left against medical advice (07) ==
LOC: ED 11:03
DX: R06.02 Shortness of breath (principal); R00.2 Palpitations; Z53.21 Procedure and treatment not carried out due to patient leaving prior to being seen by health care provider
CPT/HCPCS: 93005

== ENCOUNTER 2020-04-27 09:06 | Emergency (ER) | payer MEDICAID ==
[2020-04-27 09:13] VITALS: BP 155/91
--- NOTE | 2020-04-27 10:59 | XRay Report ---
CHEST 2 VIEWS INDICATION / CLINICAL INFORMATION: HX OF CHF NOW WITH CRISTO LEG SWELLING. COMPARISON: Chest x-ray 03/18/2019 FINDINGS: SUPPORT DEVICES: None. HEART / MEDIASTINUM: No significant abnormality. LUNGS / PLEURA: No significant pulmonary or pleural abnormality. No pneumothorax. ADDITIONAL FINDINGS: No significant additional findings. IMPRESSION: 1. No acute findings. Signer Name: Monty Corado MD Signed: 04/27/2020 10:55 AM Workstation Name: [id number]
[2020-04-27 11:07] LABS: BUN/Creatinine Ratio 20; Blood Urea Nitrogen 16 mg/dL (7-17); Calcium 9.6 mg/dL (8.4-10.2); Hemolysis Index 2
[2020-04-27 11:11] LABS: Hematocrit 38.4 % (30.3-42.9); Hemoglobin 12.9 gm/dl (10.1-14.3); Mean Corpuscular HGB Conc 34 % (30-34); Mean Corpuscular Volume 94 fl (79-97); Platelet Count 230 K/mm3 (140-440); Red Blood Count 4.09 M/mm3 (3.65-5.03); Red Cell Distribution Width 13.8 % (13.2-15.2)
[2020-04-27] MEDS ORDERED: POTASSIUM CHLORIDE ER 20 MEQ TAB PO ONE (11:17)
--- NOTE | 2020-04-27 11:29 | Emergency Department Report ---
ED General Adult HPI - General Chief complaint: Extremity Injury, Lower Stated complaint: LOWER EXTREMITY PAIN Time Seen by Provider: 04/27/20 09:54 Source: patient Mode of arrival: Ambulatory Limitations: No Limitations - History of Present Illness Initial comments: This is a 44-year-old female morbidly obese she presents to the emergency room complaining of bilateral lower leg swelling and pain for more than a week . She's had a history of similar complaints for 3 years. She saw her PCP 4 days ago and was started her on Lasix and potassium. She is under the care of chef saucier Dr. Mc from [facility]. Patient states that in May 2019 she had a fall in which resulted in a torn right ACL. She is under the care of orthopedist who treats her right ACL tear. Her past medical history consists of CHF and hypertension .she denies chest pain fever coughing. She does have episodes of shortness of breath especially with exertion. She denies any recent falls or injury no long distance traveling no surgical procedures. Patient states her symptoms have not improved since starting the Lasix . She is in no acute distress. Respirations are easy and unlabored Location: lower extremity Severity scale (0 -10): 6 Quality: aching Consistency: constant Improves with: rest Worsens with: movement, other (Ambulation) Associated Symptoms: denies: confusion, chest pain, cough, headaches, loss of appetite, malaise, nausea/vomiting, rash, seizure, syncope, weakness Treatments Prior to Arrival: none - Related Data Previous Rx's Medication Instructions Recorded Last Taken Type Albuterol Mdi (or & Nicu Only) 2 puff IH QID PRN #1 inhalation 08/11/15 Unknown Rx [Proair] Furosemide [Lasix] 20 mg PO QDAY #10 tablet 08/11/15 Unknown Rx Metoprolol [Lopressor TAB] 50 mg PO Q12H 30 Days #60 tablet 07/13/17 Unknown Rx Ibuprofen [Motrin 800 MG tab] 800 mg PO Q8HR PRN #12 tablet 08/02/17 Unknown Rx Penicillin V Potassium 500 mg PO Q8H 10 Days #30 tablet 08/02/17 Unknown Rx Acetaminophen/Codeine [Tylenol 1 tab PO Q6H PRN #15 tab 06/20/19 Unknown Rx /Codeine # 3 tab] Ondansetron [Zofran Odt] 4 mg PO Q4HR PRN #20 tab.rapdis 06/20/19 Unknown Rx traMADoL [Ultram] 50 mg PO Q6HR PRN #20 tablet 06/20/19 Unknown Rx HYDROcodone/APAP 5-325 [[place] 1 each PO Q6HR PRN #12 tablet 07/27/19 Unknown Rx 5-325 mg TAB] traMADoL [Ultram 50 MG tab] 50 mg PO Q6HR PRN #15 tablet 04/27/20 Unknown Rx Allergies Allergy/AdvReac Type Severity Reaction Status Date / Time azithromycin [From Zithromax] Allergy Hives Verified 07/27/19 16:50 ED Review of Systems ROS: Stated complaint: LOWER EXTREMITY PAIN Other details as noted in HPI Comment: All other systems reviewed and negative Constitutional: no symptoms reported. denies: chills, fever, malaise ENT: denies: ear pain, throat pain, dental pain, hearing loss, epistaxis Respiratory: SOB with exertion. denies: cough, orthopnea, shortness of breath, SOB at rest, wheezing Cardiovascular: edema (Lower extremities). denies: chest pain, palpitations, dyspnea on exertion, orthopnea, syncope, paroxysmal nocturnal dyspnea Endocrine: no symptoms reported. denies: excessive sweating, flushing Gastrointestinal: denies: abdominal pain, nausea, vomiting, diarrhea, constipation, hematemesis, hematochezia Genitourinary: denies: urgency, dysuria, frequency, hematuria, discharge, abnormal menses, dyspareunia Skin: denies: rash, lesions, change in color, change in hair/nails, pruritus Neurological: denies: headache, numbness, paresthesias, confusion, abnormal gait, vertigo Psychiatric: denies: anxiety, depression, auditory hallucinations, homicidal thoughts ED Past Medical Hx - Past Medical History Previous Medical History?: Yes Hx Hypertension: No Hx GERD: Yes Hx Renal Disease: No Hx Asthma: No Hx Tuberculosis: No Additional medical history: A. Fib.CHF. DEPENENT EDEMA - Surgical History Past Surgical History?: Yes Hx Coronary Stent: No Hx Open Heart Surgery: No Hx Pacemaker: No Hx Internal Defibrillator: No Hx Cholecystectomy: Yes Hx Appendectomy: No Hx Breast Surgery: No Additional Surgical History: Uterine ablation for DUB March 2014 - Social History Smoking Status: Never Smoker Substance Use Type: Alcohol - Medications Home Medications: Home Medications Medication Instructions Recorded Confirmed Last Taken Type Albuterol Mdi (or & Nicu Only) 2 puff IH QID PRN #1 inhalation 08/11/15 Unknown Rx [Proair] Furosemide [Lasix] 20 mg PO QDAY #10 tablet 08/11/15 Unknown Rx Metoprolol [Lopressor TAB] 50 mg PO Q12H 30 Days #60 tablet 07/13/17 Unknown Rx Ibuprofen [Motrin 800 MG tab] 800 mg PO Q8HR PRN #12 tablet 08/02/17 Unknown Rx Penicillin V Potassium 500 mg PO Q8H 10 Days #30 tablet 08/02/17 Unknown Rx Acetaminophen/Codeine [Tylenol 1 tab PO Q6H PRN #15 tab 06/20/19 Unknown Rx /Codeine # 3 tab] Ondansetron [Zofran Odt] 4 mg PO Q4HR PRN #20 tab.rapdis 06/20/19 Unknown Rx traMADoL [Ultram] 50 mg PO Q6HR PRN #20 tablet 06/20/19 Unknown Rx HYDROcodone/APAP 5-325 [[place] 1 each PO Q6HR PRN #12 tablet 07/27/19 Unknown Rx 5-325 mg TAB] traMADoL [Ultram 50 MG tab] 50 mg PO Q6HR PRN #15 tablet 04/27/20 Unknown Rx ED Physical Exam - General Limitations: No Limitations General appearance: alert, in no apparent distress, obese, other (Large pendulous breasts ) - Head Head exam: Present: atraumatic, normal inspection - Eye Eye exam: Present: normal appearance. Absent: conjunctival injection - ENT ENT exam: Present: normal exam, mucous membranes moist - Neck Neck exam: Present: normal inspection. Absent: lymphadenopathy, thyromegaly - Respiratory Respiratory exam: Present: normal lung sounds bilaterally. Absent: respiratory distress, wheezes, rales, rhonchi, chest wall tenderness, accessory muscle use, decreased breath sounds, prolonged expiratory - Cardiovascular Cardiovascular Exam: Present: regular rate, normal rhythm, normal heart sounds - GI/Abdominal GI/Abdominal exam: Present: soft, normal bowel sounds. Absent: distended - Extremities Exam Extremities exam: Present: normal inspection, full ROM, normal capillary refill. Absent: tenderness, pedal edema, joint swelling, calf tenderness - Back Exam Back exam: Present: normal inspection - Neurological Exam Neurological exam: Present: alert, oriented X3 - Psychiatric Psychiatric exam: Present: normal affect - Skin Skin exam: Present: warm, dry, intact, normal color ED Course Vital Signs 04/27/20 09:11 Temperature 97.8 F Pulse Rate 79 Respiratory 20 Rate Blood Pressure 155/91 [Right] O2 Sat by Pulse 99 Oximetry - Reevaluation(s) Reevaluation #1: 04/27/20 12:02 Patient in no acute distress all findings discussed with patient ED Medical Decision Making - Lab Data Result diagrams: 04/27/20 10:32 04/27/20 10:32 - Radiology Data Radiology results: report reviewed - Medical Decision Making This is a 44-year-old female morbidly obese with chronic lower leg pain and swelling for 3 years complicated by a history of torn right ACL. She also has a past medical history of hypertension and CHF she is under the care of her chef saucier Dr. Mc and also an orthopedist Dr. Mc patient was recently seen by her PCP 1 week ago in which Lasix was added to her medication regimen along with potassium. She reports compliance with medication regimen. She came to the emergency room today because of ongoing leg bilateral leg pain and edema. And periodic periodically she gets short of breath she denies chest pain no fever no cough. On examination I found no swelling to her lower extremities her distal pulses are intact good capillary refill. Her lungs are clear. Chest x-ray showed clear with no acute findings her labs are significant for just hypokalemia at potassium of 3.4 she was given potassium 20 p.o. her BNP was within normal limits and her glucose was slightly elevated at 112mg/dl. Based on the findings today there is no acute emergency and patient is safe to discharge home with follow-up with her primary care doctor chef saucier and/or orthopedist. I discussed all findings and the plan of care with patient and she agrees. - Differential Diagnosis Exacerbation of CHF peripheral edema hypokalemia Critical Care Time: No Critical care attestation.: If time is entered above; I have spent that time in minutes in the direct care of this critically ill patient, excluding procedure time. ED Disposition Clinical Impression: Chronic pain of lower extremity, bilateral, Hypokalemia Disposition: TO HOME OR SELFCARE Is pt being admited?: No Does the pt Need Aspirin: No Condition: Stable Instructions: Hypokalemia, How to Use Cold Therapy, Leg Cramps Additional Instructions: Your chest x-ray today had no acute findings your blood sugar level was 117mg/dl just slightly elevated. and your potassium level was 3.4 decreased. the beta natruretic peptide was 112 which is in normal limits Please follow-up with your primary care doctor in 3 to 5 days take your home medications as previously prescribed. Return to the emergency room if you d evelop chest pain severe shortness of breath worsening pain or swelling of your legs Prescriptions: traMADoL [Ultram 50 MG tab] 50 mg PO Q6HR PRN #15 tablet PRN Reason: Pain Referrals: DAVID HOROWITZ MD [Primary Care Provider] - 3-5 Days Time of Disposition: 11:58
[2020-04-27] MEDS ORDERED: traMADol 50 MG TAB PO ONE (11:44)
== END 2020-04-27 12:50 | disposition home or self-care (01) ==
LOC: ED 09:06
DX: E87.6 Hypokalemia (principal); M79.662 Pain in left lower leg; M79.661 Pain in right lower leg; G89.29 Other chronic pain; K21.9 Gastro-esophageal reflux disease without esophagitis; Z90.49 Acquired absence of other specified parts of digestive tract; Z98.890 Other specified postprocedural states; Z79.1 Long term (current) use of non-steroidal anti-inflammatories (NSAID); Z79.899 Other long term (current) drug therapy; Z88.1 Allergy status to other antibiotic agents
CPT/HCPCS: 36415; 71046; 80048; 83880; 85027

== ENCOUNTER 2020-12-26 20:55 | Emergency (ER) | payer MEDICAID ==
[2020-12-26 23:44] VITALS: BP 133/74
[2020-12-27 00:45] LABS: Basophils % (Auto) 0.2 % (0.0-1.8); Eosinophils # (Auto) 0.2 K/mm3 (0.0-0.4); Eosinophils % (Auto) 2.2 % (0.0-4.3); Hemoglobin 13.3 gm/dl (10.1-14.3); Lymphocytes # (Auto) 3.2 K/mm3 (1.2-5.4); Lymphocytes % (Auto) 31.3 % (13.4-35.0); Mean Corpuscular HGB Conc 35 % (30-34); Mean Corpuscular Volume 91 fl (79-97); Monocytes # (Auto) 1.3 K/mm3 (0.0-0.8); Monocytes % (Auto) 12.3 % (0.0-7.3); Platelet Count 219 K/mm3 (140-440); Red Blood Count 4.17 M/mm3 (3.65-5.03); Red Cell Distribution Width 13.6 % (13.2-15.2)
[2020-12-27 01:07] LABS: BUN/Creatinine Ratio 17; Blood Urea Nitrogen 15 mg/dL (7-17); Calcium 9.6 mg/dL (8.4-10.2); Hemolysis Index 0
== END 2020-12-27 00:20 | disposition left against medical advice (07) ==
LOC: ED 20:55
DX: R52 Pain, unspecified (principal); Z53.21 Procedure and treatment not carried out due to patient leaving prior to being seen by health care provider
CPT/HCPCS: 36415; 80048; 85025